=== PATIENT | female | born 1970 ===

== ENCOUNTER 2017-05-22 06:58 | Emergency (ER) | payer OTHER ==
[2017-05-22 06:58] VITALS: BMI 24.9
[2017-05-22 07:22] VITALS: O2SAT 100
[2017-05-22] MEDS ORDERED: Albuterol-Ipratrop 3 mg / 0.5 (3 ml) UD INH STA (07:46)
[2017-05-22] MEDS ORDERED: Albuterol-Ipratrop 3 mg / 0.5 (3 ml) UD ONE (07:47)
--- NOTE | 2017-05-22 08:06 | C.PDOC ---
History Of Present Illness 47 yr old female with PMHx of asthma, presents to the ER with complaints of coughing for the past 3 days, associated with subjective fever and runny nose. Patient states she has been using her nebulizer with no relief. States she felt more SOB prompting the visit. Denies travel, chest pain, nausea, vomiting, abdominal pain, neck pain or headache. Time Seen by Provider: 05/22/17 07:21 Chief Complaint (Nursing): Cough, Cold, Congestion History Per: Patient History/Exam Limitations: no limitations Onset/Duration Of Symptoms: Days (3) Current Symptoms Are (Timing): Still Present Past Medical History Reviewed: Historical Data, Nursing Documentation, Vital Signs Vital Signs: Last Vital Signs Temp 98.7 F 05/22/17 09:32 Pulse 76 05/22/17 09:32 Resp 18 05/22/17 09:32 BP 114/81 05/22/17 09:32 Pulse Ox 100 05/22/17 09:32 - Medical History PMH: Asthma (DOES NOT USE INHALER OR TAKE MEDS), Diverticulitis, Gastritis, HTN , Hypercholesterolemia, Osteoporosis Surgical History: Endoscopy - [facility] Procedures ANESTH INJEC PERIPH NERV (07/19/14) CYSTOSCOPY NEC (07/19/14) IMPLANT OR REPLACEMENT OF PERIPHERAL NEUROSTIMULATOR LEAD(S) (10/26/14) INJECT/INFUSE NEC (12/13/13) INSERT OR REPLACE OF OTH NEUROSTIMULATOR PULSE GENERATOR (10/26/14) OPEN ROBOTIC ASSISTED PROCEDURE (07/19/14) OTH LYSIS-PERITONEAL ADHES (07/19/14) OTHER AND UNSPECIFIED TOTAL ABDOMINAL HYSTERECTOMY (07/19/14) REMOVE BOTH FALLOP TUBES (07/19/14) SUTURE BLADDER LACERAT (07/19/14) UTERINE SUSPENSION NEC (07/19/14) Family History: States: No Known Family Hx - Social History Hx Tobacco Use: No Hx Alcohol Use: Yes Hx Substance Use: No - Immunization History Hx Tetanus Toxoid Vaccination: No Hx Influenza Vaccination: Yes Hx Pneumococcal Vaccination: No Review Of Systems Except As Marked, All Systems Reviewed And Found Negative. Constitutional: Positive for: Fever (subjective) ENT: Positive for: Nose Discharge (runny nose) Cardiovascular: Negative for: Chest Pain Respiratory: Positive for: Cough, Shortness of Breath Gastrointestinal: Negative for: Nausea, Vomiting, Abdominal Pain Musculoskeletal: Negative for: Neck Pain Neurological: Negative for: Headache Physical Exam - Physical Exam Appears: Non-toxic, No Acute Distress Skin: Warm, Dry, No Rash Head: Atraumatic, Normacephalic Eye(s): bilateral: Normal Inspection, PERRL, EOMI Ear(s): Bilateral: Normal Oral Mucosa: Moist Throat: Normal, No Erythema, No Exudate, No Drooling Neck: Normal, Normal ROM, Supple Cardiovascular: Rhythm Regular, No Friction Rub, No Murmur Respiratory: Normal Breath Sounds, No Rales, No Rhonchi, No Stridor, No Wheezing , Other (constant coughing, no retractions) Gastrointestinal/Abdominal: Normal Exam, Soft, No Tenderness Extremity: Normal ROM, No Swelling Neurological/Psych: Oriented x3, Normal Speech, Normal Motor Gait: Steady ED Course And Treatment O2 Sat by Pulse Oximetry: 100 (RA) Pulse Ox Interpretation: Normal - Other Rad CXR X-Ray: Viewed By Me, Read By Radiologist Interpretation: HISTORY: COMPARISON: 05/22/2017 please. TECHNIQUE: Chest PA and lateral. FINDINGS: LINES AND TUBES: None. LUNG AND PLEURA: The lungs are well inflated and clear. HEART AND MEDIASTINUM: The heart is not enlarged. The hilar and mediastinal contours are within normal limits. SKELETAL STRUCTURES: The bony structures are within normal limits for the patient's age. VISUALIZED UPPER ABDOMEN: Normal. OTHER FINDINGS: None. IMPRESSION: No active pulmonary disease. Medical Decision Making Medical Decision Making: PLAN: * CXR * Albuterol INH * Motrin PO * Prednisone PO * Phenergan PO NOTE: On re-exam, the patient reports improvement of symptoms. Lungs are CTA, heart is RRR, vitals are WNL's. Ambulatory in the ED with steady gait. Disposition - Disposition Referrals: [facility] at [facility] [Outside] Disposition: HOME/ ROUTINE Disposition Time: 09:02 Condition: GOOD Additional Instructions: Follow up with the medical doctor within 1-2 days. Return if worsened. Prescriptions: Benzonatate [Tessalon Perles] 200 mg PO TID PRN #21 sgl PRN Reason: Cough Ibuprofen [Motrin] 1 tab PO TID PRN #30 tab PRN Reason: Pain predniSONE [Prednisone] 20 mg PO BID #10 tab Instructions: Acute Bronchitis (ED) Forms: [facility] (Armenian), Work Excuse Print Language: JAPANESE - Clinical Impression Clinical Impression: Bronchitis, Asthmatic bronchitis - PA / RN ONCOLOGY RESEARCH / Resident Statement MD/DO has reviewed & agrees with the documentation as recorded. - Scribe Statement The provider has reviewed the documentation as recorded by the Scribe Sharon Bashir All medical record entries made by the Scribe were at my direction and personally dictated by me. I have reviewed the chart and agree that the record accurately reflects my personal performance of the history, physical exam, medical decision making, and the department course for this patient. I have also personally directed, reviewed, and agree with the discharge instructions and disposition.
[2017-05-22] MEDS ORDERED: Promethazine/Cod 6.25mg-10mg/5ml Syr UD PO STA (08:25)
[2017-05-22] MEDS ORDERED: Promethazine/Cod 6.25mg-10mg/5ml Syr UD ONE (08:34)
--- NOTE | 2017-05-22 08:35 | RAD ---
HISTORY: COMPARISON: 05/22/2017 please. TECHNIQUE: Chest PA and lateral FINDINGS: LINES AND TUBES: None. LUNG AND PLEURA: The lungs are well inflated and clear. HEART AND MEDIASTINUM: The heart is not enlarged. The hilar and mediastinal contours are within normal limits. SKELETAL STRUCTURES: The bony structures are within normal limits for the patient's age. VISUALIZED UPPER ABDOMEN: Normal. OTHER FINDINGS: None. IMPRESSION: No active pulmonary disease.
[2017-05-22 09:33] VITALS: BP 114/81; PULSE 76; RESP 18; TEMP 98.7
== END 2017-05-22 09:51 | disposition home or self-care (01) ==
LOC: C.ER 06:58
DX: J45.909 Unspecified asthma, uncomplicated (principal)

== ENCOUNTER 2017-11-25 18:35 | Emergency (ER) | payer OTHER ==
[2017-11-25 18:35] VITALS: BMI 25.0
[2017-11-25 18:40] VITALS: RESP 18
--- NOTE | 2017-11-25 19:08 | C.PDOC ---
History Of Present Illness 47-year-old female presents to the ER for evaluation of abdominal pain associated with multiple episodes of watery non-bloody diarrhea that began yesterday. Pain is described as generalized and crampy in nature. No associated nausea or vomiting. She does report loss of appetite. Otherwise patient denies any fever, chills, dysuria, frequency, back pain, or other associated symptoms. Patient states pain and discomfort continued today, prompting concern. Time Seen by Provider: 11/25/17 18:57 Chief Complaint (Nursing): Abdominal Pain History Per: Patient History/Exam Limitations: no limitations Onset/Duration Of Symptoms: Days (x2) Current Symptoms Are (Timing): Still Present Past Medical History Reviewed: Historical Data, Nursing Documentation, Vital Signs Vital Signs: Last Vital Signs Temp 98.3 F 11/25/17 21:25 Pulse 88 11/25/17 21:25 Resp 18 11/25/17 21:25 BP 106/78 11/25/17 21:25 Pulse Ox 100 11/25/17 21:58 - Medical History PMH: Asthma (DOES NOT USE INHALER OR TAKE MEDS), Diverticulitis, Gastritis, HTN , Hypercholesterolemia, Osteoporosis Denies: Colonic Polyps, Chronic Kidney Disease Surgical History: Endoscopy - [facility] Procedures ANESTH INJEC PERIPH NERV (07/19/14) CYSTOSCOPY NEC (07/19/14) IMPLANT OR REPLACEMENT OF PERIPHERAL NEUROSTIMULATOR LEAD(S) (10/26/14) INJECT/INFUSE NEC (12/13/13) INSERT OR REPLACE OF OTH NEUROSTIMULATOR PULSE GENERATOR (10/26/14) OPEN ROBOTIC ASSISTED PROCEDURE (07/19/14) OTH LYSIS-PERITONEAL ADHES (07/19/14) OTHER AND UNSPECIFIED TOTAL ABDOMINAL HYSTERECTOMY (07/19/14) REMOVE BOTH FALLOP TUBES (07/19/14) SUTURE BLADDER LACERAT (07/19/14) UTERINE SUSPENSION NEC (07/19/14) Family History: States: Unknown Family Hx - Social History Hx Tobacco Use: No Hx Alcohol Use: Yes Hx Substance Use: No - Immunization History Hx Tetanus Toxoid Vaccination: No Hx Influenza Vaccination: Yes Hx Pneumococcal Vaccination: No Review Of Systems Except As Marked, All Systems Reviewed And Found Negative. Constitutional: Negative for: Fever, Chills Gastrointestinal: Positive for: Abdominal Pain, Diarrhea, Other (Loss of appetite). Negative for: Nausea, Vomiting Genitourinary: Negative for: Dysuria, Frequency Musculoskeletal: Negative for: Back Pain Physical Exam - Physical Exam Appears: No Acute Distress, Other (Appears uncomfortable) Skin: Normal Color, Warm, Dry Head: Atraumatic, Normacephalic Eye(s): bilateral: Normal Inspection, PERRL, EOMI Nose: Normal Oral Mucosa: Moist Neck: Normal ROM, Supple Chest: Symmetrical Cardiovascular: Rhythm Regular, No Murmur Respiratory: Normal Breath Sounds, No Accessory Muscle Use Gastrointestinal/Abdominal: Soft, Tenderness (mild tenderness to the RUQ and epigastrium, with increased tenderness of the RLQ with guarding), Guarding (RLQ) , No Rebound Back: Normal Inspection, No CVA Tenderness Extremity: Bilateral: Atraumatic, Normal Color And Temperature, Normal ROM Neurological/Psych: Oriented x3, Normal Speech, Normal Cranial Nerves ED Course And Treatment - Laboratory Results Result Diagrams: 11/25/17 19:14 11/25/17 19:14 Lab Interpretation: No Acute Changes O2 Sat by Pulse Oximetry: 100 (RA) Pulse Ox Interpretation: Normal - CT Scan/US CT abd/pel Other Rad Studies (CT/US): Read By Radiologist, Radiology Report Reviewed CT/US Interpretation: EXAM: CT Abdomen and Pelvis With Intravenous Contrast. EXAM DATE/TIME: 11/25/2017 7:01 PM. CLINICAL HISTORY: 47 years old, female; Pain; Abdominal pain; Generalized; Additional info: Abd pain. TECHNIQUE: Axial computed tomography images of the abdomen and pelvis with intravenous contrast. All CT scans at this facility use at least one of these dose optimization techniques: automated. exposure control; mA and/or kV adjustment per patient size (includes targeted exams where dose is. matched to clinical indication); or iterative reconstruction. Coronal and sagittal reformatted images were created and reviewed. CONTRAST: 100 ml of OMNIPAQUE 300 administered intravenously. COMPARISON: CT - ABD PELVIS IV CONTRAST ONLY 07-31 20:55. FINDINGS: Limitations: Motion artifact - mild to moderate. Lower thorax: No acute findings. ABDOMEN: Liver: Fatty infiltration. Gallbladder and bile ducts: No calcified stones. No ductal dilation. Pancreas: Normal. No ductal dilation. Spleen: No splenomegaly. Adrenals: No mass. Kidneys and ureters: Normal. No hydronephrosis. Stomach and bowel: Few scattered diverticula within colon. Mild mural thickening short segment of. cecum. Mild stranding within adjacent fat. No obstruction. Appendix: Normal caliber. No inflammation. PELVIS: Bladder: Unremarkable as visualized. Reproductive: Hysterectomy. ABDOMEN and PELVIS: Intraperitoneal space: Normal. No free air. No significant fluid collection. Bones/joints: No acute fracture. No dislocation. Soft tissues: Breast implants. Vasculature: Minimal atherosclerotic disease. No aneurysm. Lymph nodes: No enlarged lymph nodes. IMPRESSION: Findings compatible with acute diverticulitis of cecum. Recommend endoscopy following resolution. Reevaluation Time: 22:01 Reassessment Condition: Improved Medical Decision Making Medical Decision Making: Initial Impression: Right flank pain Time: 19:01 Initial Plan: --Blood work --Urinalysis --2 mg IV Morphine --CT A/P with PO & IV contrast Disposition Counseled Patient/Family Regarding: Studies Performed, Diagnosis, Need For Followup, Rx Given - Disposition Referrals: [facility] at [facility] [Outside] Disposition: HOME/ ROUTINE Disposition Time: 22:04 Condition: STABLE Prescriptions: Ciprofloxacin [Cipro] 1 tab PO BID #14 tab Instructions: Low Fiber Diet, Diverticulitis Forms: [employer] (Cambodian) Print Language: COOK ISLANDER - Clinical Impression Clinical Impression: Diverticulitis - Scribe Statement The provider has reviewed the documentation as recorded by the Ludin Lerma Provider Attestation: All medical record entries made by the Ludin were at my direction and personally dictated by me. I have reviewed the chart and agree that the record accurately reflects my personal performance of the history, physical exam, medical decision making, and the department course for this patient. I have also personally directed, reviewed, and agree with the discharge instructions and disposition.
[2017-11-25 19:22] LABS: BASO % 0.3 % (0.0-2.0); EOS # 0.1 K/uL (0.0-0.7); EOS % 0.9 % (0.0-4.0); LYMPH # 3.1 K/uL (1.0-4.3); MEAN CELL VOLUME 91.6 fL (81.0-99.0); MEAN CORPUSCULAR HGB CONC 33.9 g/dL (33.0-37.0); MEAN PLATELET VOLUME 7.9 fL (7.2-11.7); MONO # 1.2 K/uL (0.0-0.8); MONO % 10.9 % (0.0-10.0); NEUT # 6.3 K/uL (1.8-7.0); NEUT % 58.9 % (50.0-75.0); RBC 3.86 Mil/uL (3.80-5.20); RED CELL DISTRIBUTION WIDTH 13.1 % (11.5-14.5); WHITE BLOOD COUNT 10.7 K/uL (4.8-10.8)
[2017-11-25 19:26] LABS: SQUAMOUS EPITHIAL < 1 /hpf (0-5); URINE BILIRUBIN NEGATIVE (NEGATIVE); URINE BLOOD NEGATIVE (NEGATIVE); URINE CLARITY Clear (Clear); URINE COLOR Colorless (YELLOW); URINE GLUCOSE (UA) NORMAL (Normal); URINE LEUKOCYTE ESTERASE NEG Leu/uL (Negative); URINE PROTEIN NEGATIVE (NEGATIVE); URINE UROBILINOGEN NORMAL mg/dL (0.2-1.0)
[2017-11-25] MEDS ORDERED: Iohexol 240 (50 ml) ONE (19:26)
[2017-11-25 19:33] LABS: ALB/GLOB RATIO 1.3 (1.0-2.1); ALBUMIN 4.5 g/dL (3.5-5.0); ALT/SGPT 27 U/L (9-52); AST/SGOT 25 U/L (14-36); BLOOD UREA NITROGEN 9 mg/dL (7-17); CALCIUM 10.1 mg/dl (8.6-10.4); GFR AFRICAN-AMERICAN > 60; GFR NON-AFRICAN AMERICAN > 60; LIPASE 100 U/L (23-300)
[2017-11-25] MEDS ORDERED: Iohexol 240 (50 ml) PO ONE (19:35)
[2017-11-25] MEDS ORDERED: Iohexol 300 100 ML IJ ONE (19:57)
[2017-11-25 21:34] VITALS: BP 106/78; PULSE 88; TEMP 98.3
[2017-11-25 21:58] VITALS: O2SAT 100
--- NOTE | 2017-11-26 10:12 | CT ---
Date of service: 11/25/2017 PROCEDURE: CT Abdomen and Pelvis without intravenous contrast HISTORY: Abdominal pain COMPARISON: CT abdomen and pelvis dated 08/01/2015 TECHNIQUE: Multiple contiguous axial images were performed through the abdomen and pelvis with the use of intravenous contrast. Subsequently, sagittal and coronal reformatted images were. Radiation dose: Total exam DLP = 326 mGy-cm. This CT exam was performed using one or more of the following dose reduction techniques: Automated exposure control, adjustment of the mA and/or kV according to patient size, and/or use of iterative reconstruction technique. FINDINGS: LOWER THORAX: Atelectasis at the lung bases. LIVER: Fatty infiltration of the liver. GALLBLADDER AND BILE DUCTS: Unremarkable. PANCREAS: Unremarkable. No gross lesion or ductal dilatation. SPLEEN: Unremarkable. ADRENALS: Unremarkable. No mass. KIDNEYS AND URETERS: Unremarkable. No hydronephrosis. No solid mass. VASCULATURE: Atherosclerotic disease in the aorta. BOWEL: Few scattered diverticuli within the colon. Mild mural thickening of a short segment of the cecum. Mild stranding in the adjacent fat. APPENDIX: Unremarkable. Normal appendix. PERITONEUM: Unremarkable. No free fluid. No free air. LYMPH NODES: Unremarkable. No enlarged lymph nodes. BLADDER: Unremarkable. REPRODUCTIVE: Hysterectomy. BONES: No acute fracture. OTHER FINDINGS: Mild to moderate motion artifact. Breast implants. IMPRESSION: Findings concerning for acute diverticulitis of the cecum. Clinical correlation. Recommend endoscopy following resolution. Additional findings as above. These findings were preliminarily reported at 9:53 p.m. on 11/25/[address] Eliazar Adame from [facility].
== END 2017-11-25 22:24 | disposition home or self-care (01) ==
LOC: C.ER 18:35
DX: K57.32 Diverticulitis of large intestine without perforation or abscess without bleeding (principal)
CPT/HCPCS: 74177; 80053; 81001; 83690; 85025; 96374; 99285; J2270; Q9966; Q9967

== ENCOUNTER 2018-01-27 20:31 | Emergency (ER) | payer OTHER ==
[2018-01-27 20:32] VITALS: BMI 25.0
[2018-01-27] MEDS ORDERED: Tdap Vaccine 0.5 ml Vial (10-64 yrs) IM ONE ×2 (21:56→22:25)
[2018-01-27] MEDS ORDERED: Lidocaine 2% Inj (20ml) INFIL ONE (21:56)
--- NOTE | 2018-01-27 22:00 | C.PDOC ---
History Of Present Illness 47 yo female come in accompanied by daughter for evaluation of Right foot laceration sustained early today around 5PM "walking outside by garbage". Pt admits, cleaned wound at home," noted still bleeding" . Otherwise, pt denies fever, chills, deformity to Right foot, weakness, sensory or vascular deficits. Ambulate to Ed for evaluation, not in any apparent distress. Time Seen by Provider: 01/27/18 21:39 History Per: Patient Onset/Duration Of Symptoms: Sudden Onset Past Medical History Reviewed: Historical Data, Nursing Documentation, Vital Signs Vital Signs: Last Vital Signs Temp 98.8 F 01/27/18 22:12 Pulse 66 01/27/18 22:12 Resp 18 01/27/18 22:12 BP 109/75 01/27/18 22:12 Pulse Ox 100 01/27/18 22:12 - Medical History PMH: Asthma (DOES NOT USE INHALER OR TAKE MEDS), Diverticulitis, Gastritis, HTN , Hypercholesterolemia, Osteoporosis Denies: Colonic Polyps, Chronic Kidney Disease Surgical History: Endoscopy - [facility] Procedures ANESTH INJEC PERIPH NERV (07/19/14) CYSTOSCOPY NEC (07/19/14) IMPLANT OR REPLACEMENT OF PERIPHERAL NEUROSTIMULATOR LEAD(S) (10/26/14) INJECT/INFUSE NEC (12/13/13) INSERT OR REPLACE OF OTH NEUROSTIMULATOR PULSE GENERATOR (10/26/14) OPEN ROBOTIC ASSISTED PROCEDURE (07/19/14) OTH LYSIS-PERITONEAL ADHES (07/19/14) OTHER AND UNSPECIFIED TOTAL ABDOMINAL HYSTERECTOMY (07/19/14) REMOVE BOTH FALLOP TUBES (07/19/14) SUTURE BLADDER LACERAT (07/19/14) UTERINE SUSPENSION NEC (07/19/14) Family History: States: Unknown Family Hx - Social History Hx Tobacco Use: No Hx Alcohol Use: Yes Hx Substance Use: No - Immunization History Hx Tetanus Toxoid Vaccination: No Hx Influenza Vaccination: Yes Hx Pneumococcal Vaccination: No Review Of Systems Except As Marked, All Systems Reviewed And Found Negative. Constitutional: Negative for: Fever, Chills Musculoskeletal: Positive for: Foot Pain Skin: Positive for: Lesions Neurological: Negative for: Weakness, Numbness Physical Exam - Physical Exam Appears: Well, Non-toxic, No Acute Distress Skin: Normal Color, Warm, Other ((+) 2cm C-shape cutaneous laceration over lateral dorsal aspect Right ,mild bloody oozing noted. NO wound FB. ) Extremity: Normal ROM (Rightfoot, no neurovascular deficits distally), Tenderness (mild over lac area), No Calf Tenderness, Capillary Refill (less than 2sec to Right foot), No Deformity, No Swelling Neurological/Psych: Oriented x3, Normal Speech, Normal Motor, Normal Sensation, Normal Reflexes ED Course And Treatment Progress Note: On re-eval, pt is afebrile, hemodynamicaly stable. NOn-toxic. Ambulatory in ED with stable gait. Right foot: laceration repaired w/sutures without difficulty. FAROM, no neurovascular deficits. Pt was offered imaging to r/o FB or fx-refused. Tetanus given. Pt advised on wound care. ref. to F/ u with PMD in 2 days for wound check Laceration - Laceration Repair Right foot Wound Length (In cm): 2cm Description Of Wound: Irregular (C-shape, cutaneous) Wound Cleansed With: Betadine Anesthesia: Lidocaine 2% Wound Examination: Irrigated With Saline, No FB With Wound Exploration, No Tendon Injury With Wound Exploration Wound Closure: Suture (#5) Suture Technique And Material Used: Interrupted, Nylon (5-0) Wound Complexity: Simple Disposition Counseled Patient/Family Regarding: Diagnosis, Need For Followup - Disposition Referrals: [facility] [Outside] Disposition: HOME/ ROUTINE Disposition Time: 22:02 Condition: STABLE Additional Instructions: Avoid prolong walking for 1 week Keep wound clean, dry, avoid prolong water exposure, cover Right foot with plastic bag during the shower Suture removal in 10 days Follow up with PMD in 2 days for wound check as need return to ED at any time if any worsening or any sign of infection Instructions: Laceration Repair With Stitches (DC) Forms: Work Excuse Print Language: GRENADIAN - Clinical Impression Clinical Impression: Laceration of foot
[2018-01-27] MEDS ORDERED: Lidocaine 2% MPF (5 ml) Inj ONE (22:02)
[2018-01-27 22:18] VITALS: BP 109/75; PULSE 66; RESP 18; TEMP 98.8; O2SAT 100
[2018-01-27] MEDS ORDERED: Bacitracin 500 Units/gm Oint Foilpak UD ONE (22:27)
[2018-01-27] MEDS ORDERED: Bacitracin Ointment 30 GM TUBE TOP STA (22:28)
== END 2018-01-27 22:46 | disposition home or self-care (01) ==
LOC: C.ER 20:31
DX: S91.311A Laceration without foreign body, right foot, initial encounter (principal); X58.XXXA Exposure to other specified factors, initial encounter

== ENCOUNTER 2018-08-20 09:35 | Outpatient (CLI) | payer OTHER | END 2018-08-20 09:36 | disposition home or self-care (01) | LOC: C.MAMMO 09:36 ==